=== PATIENT | female | born 1985 | race African-American/Black ===

== ENCOUNTER 2017-05-03 06:57 | Emergency (ER) | payer SELFPAY ==
[2017-05-03 07:05] VITALS: BP 126/72
--- NOTE | 2017-05-03 07:29 | ER Document Report ---
ED ENT - General Information source: Patient TRAVEL OUTSIDE OF THE [place] IN LAST 30 DAYS: No - HPI Patient complains to provider of: Throat problem Onset: Other - 2 weeks Location of pain: Throat Associated symptoms: Other - see above - General Chief Complaint: Sore Throat Stated Complaint: SORE THROAT Time Seen by Provider: 05/03/17 07:25 Notes: Patient is a 34 year old female who presents to the ED with complaints of discomfort and difficulty swallowing x2 weeks. Patient states she began having pain 2 days ago. Patient states she coughed yesterday and her sputum had small traces of blood. Patient denies a history of reflux or heart burn. Patient denies any sob. (ANANTH WALKER) - Related Data Allergies/Adverse Reactions: No Known Allergies Allergy (Verified 05/03/17 07:41) Past Medical History - General Information source: Patient - Social History Smoking Status: Unknown if Ever Smoked Family History: Reviewed & Not Pertinent Patient has suicidal ideation: No Patient has homicidal ideation: No Pulmonary Medical History: Reports: Hx Asthma Renal/ Medical History: Denies: Hx Peritoneal Dialysis Past Surgical History: Reports: Hx Section - x1 - Immunizations Hx Diphtheria, Pertussis, Tetanus Vaccination: Yes - 2011 Hx Pneumococcal Vaccination: 07/13/12 Review of Systems - Review of Systems Constitutional: No symptoms reported EENT: See HPI, Throat pain, Difficulty swallowing Cardiovascular: No symptoms reported Respiratory: See HPI, Cough, Sputum Gastrointestinal: No symptoms reported Genitourinary: No symptoms reported Female Genitourinary: No symptoms reported Musculoskeletal: No symptoms reported Skin: No symptoms reported Hematologic/Lymphatic: No symptoms reported Neurological/Psychological: No symptoms reported Physical Exam - General General appearance: Appears well, Alert, Other - voice is muffled and congested sounding In distress: None - HEENT Head: Normocephalic, Atraumatic Eyes: Normal Extraocular movements intact: Yes Pupils: PERRL Pharynx: Normal - Respiratory Respiratory status: No respiratory distress Breath sounds: Normal - Cardiovascular Rhythm: Regular Heart sounds: Normal auscultation Murmur: No - Abdominal Inspection: Normal Distension: No distension - Back Back: Normal - Extremities General upper extremity: Normal inspection, Normal ROM General lower extremity: Normal inspection, Normal ROM - Neurological Neuro grossly intact: Yes - Psychological Associated symptoms: Normal affect, Normal mood - Skin Skin Temperature: Warm Skin Moisture: Dry Skin Color: Normal Course - Re-evaluation Re-evalutation: 05/03/17 07:46 Patient presents emergency department with chief complaint of difficulty swallowing for several weeks duration followed by a sore throat that started 2 days ago. Patient states that she said trouble swallowing for several weeks now. She says that it started to hurt when she swallows about 2 days ago. She has not seen anyone for this denies a history of reflux GERD or heartburn. She is otherwise physically healthy she denies of having any respiratory distress she says when she tries to swallow liquids he feels like it is getting stuck. She has had no difficulty breathing choking cyanosis or respiratory difficulty. On examination well-appearing nontoxic her voice sounds a little bit hoarse but there is no trismus stridor or drooling posterior pharynx is without erythema edema or exudate tonsils are not enlarged there is no peritonsillar abscess uvula is midline teeth are intact trachea is midline no stridor lungs are clear. I have several concerns about the fact that she has had difficulty swallowing for several weeks duration followed by some pain right now. I believe she needs follow-up with an ear nose and throat doctor and have a scope put down her throat to make sure there is no type of masses or tumors or narrowing of the esophagus. In addition to that I did start her on some reflux medication. I do not think she has strep throat treated with Bicillin LA and gave her [facility] for ENT follow-up this week and discussed reasons for ED return sooner (ALICE NOGUEIRA) - Vital Signs Vital signs: Temp Pulse Resp BP Pulse Ox 98.2 F 77 18 126/72 H 97 05/03/17 07:02 05/03/17 07:02 05/03/17 07:02 05/03/17 07:02 05/03/17 07:02 Discharge - Discharge Clinical Impression: dysphagia with hoarseness Condition: Stable Disposition: HOME, SELF-CARE Additional Instructions: Dysphagia You are suffering from dysphagia -- a difficulty in swallowing food or liquid. This is due to a narrowing in the esophagus. Most commonly, it's due to chronic effects of esophagitis (an inflammation of the lower esophagus due to stomach acid, causing symptoms such as chest pain or heartburn). A hiatal hernia is often present. Meat and poorly chewed food may stick in the lower esophagus, blocking it. If this is a recurrent problem, a procedure to dilate the esophagus may be necessary. If the dysphagia has just begun, further testing to evaluate the cause of the obstruction will be necessary. Most commonly, the problem will resolve once swelling in the esophagus stops. Usual treatment is antacids or acid-suppressing medication. Membrane- coating medicine (such as Carafate), or medicine to keep acid out of the esophagus (such as Reglan) may be helpful for some patients. Call the doctor or return for re-evaluation if you develop chest pain, fever, shortness of breath, or inability to swallow fluids. Call [facility] ENT today for follow-up appointment in 3-4 days at telephone #[phone]. They are located on [address] [place] [address]. here in [place]. Prescriptions: Ranitidine HCl [Zantac] 150 mg PO BID #14 tablet Forms: Return to Work Scribe Attestation: 05/03/17 07:51 I personally performed the services described in the documentation reviewed the documentation recorded by my scribe in my presence and it accurately and completely records my words and actions (ALICE NOGUEIRA) Scribe Documentation - Scribe Written by Sandie:: sandie Restrepo, 05/03/2017, [id number] acting as scribe for :: [place]jas
[2017-05-03] MEDS ORDERED: PENICILLIN G BENZATHINE 1.2 MILLION UNIT/2 ML DISP.SYRIN IM ONE (07:39)
== END 2017-05-03 08:00 | disposition home or self-care (01) ==
LOC: ER 06:57
DX: R13.10 Dysphagia, unspecified (principal); R49.0 Dysphonia; J02.9 Acute pharyngitis, unspecified
CPT/HCPCS: 99282; 96372; J0561

== ENCOUNTER → 2017-05-23 | Outpatient (CLI) | payer SELFPAY ==
--- NOTE | 2017-05-23 15:17 | RADIOLOGY REPORT (SQ) ---
EXAM DESCRIPTION: BARIUM SWALLOW ESOPHAGUS COMPLETED DATE/TIME: 05/23/2017 9:40 am REASON FOR STUDY: DYSPHAGIA, UNSPECIFIED R13.10 DYSPHAGIA, UNSPECIFIED COMPARISON: None. TECHNIQUE: Under fluoroscopic guidance, patient ingested effervescent granules followed by thick and thin barium. Fluoroscopic spot images and routine radiographic images acquired and stored on PACS. 12 MM BARIUM TABLET GIVEN: Yes. LIMITATIONS: None. FLUOROSCOPY TIME: FLUORO TIME: 1 minutes 33 seconds Multiple fluoroscopic images saved to PACS. FINDINGS: NEUROMUSCULAR COORDINATION OF SWALLOW: Normal. No aspiration. ESOPHAGEAL MOTILITY: Normal peristalsis. No esophageal spasm. ESOPHAGEAL MUCOSA: Normal mucosa without masses or ulceration. GASTRO-ESOPHAGEAL JUNCTION: Reflux to the level of the thoracic inlet. NON-GI TRACT STRUCTURES: No significant finding. OTHER: No other significant finding. IMPRESSION: Gastroesophageal reflux. No stricture identified. COMMENT: Quality ID [id number]: Final reports for procedures using fluoroscopy that document radiation exp osure indices, or exposure time and number of fluorographic images (if radiation exposure indices are not available) TECHNICAL DOCUMENTATION: JOB ID: [id number] [employer]- All Rights Reserved
== END ==
LOC: RAD 09:05
PROVIDERS: ATTEND Otolaryngology
DX: R13.10 Dysphagia, unspecified (principal)
CPT/HCPCS: 74220

== ENCOUNTER → 2018-03-16 | Outpatient (CLI) | payer OTHER ==
--- NOTE | 2018-03-16 10:27 | WOMENS IMAGING REPORT ---
EXAM DESCRIPTION: BILAT DIAGNOSTIC MAMMO W/CAD; U/S BREAST UNILAT LIMITED COMPLETED DATE/TIME: 03/16/2018 9:46 am; 03/16/2018 10:15 am REASON FOR STUDY: GALACTORRHEA OF BOTH BREASTS; N64.3; BILATERAL BREAST DISCHARGE N64.3 GALACTORRHE A NOT ASSOCIATED WITH CHILDBIRTH COMPARISON: None. TECHNIQUE: Standard craniocaudal and mediolateral oblique views of each breast recorded using digita l acquisition. Additional true lateral images of both breasts. LIMITATIONS: None. FINDINGS: RIGHT BREAST MASSES: No suspicious masses. CALCIFICATIONS: No new or suspicious calcifications. ARCHITECTURAL DISTORTION: None. DEVELOPING DENSITY: None. ASYMMETRY: None noted. OTHER: No other significant findings. LEFT BREAST MASSES: No suspicious masses. CALCIFICATIONS: No new or suspicious calcifications. ARCHITECTURAL DISTORTION: None. DEVELOPING DENSITY: None. ASYMMETRY: None noted. OTHER: Metallic foreign body from prior injury. No other significant finding. Read with the assistance of CAD: .[facility] - R2 Cenova Version 1.3 .[facility] Imaging - R2 Cenova Version 1.3 .[facility] Imaging - R2 Cenova Version 2.4 .[facility] [place] R2 Cenova Version 2.4 .[facility] - R2 Principal Technical Writer Version 9.2 BREAST ULTRASOUND: TECHNIQUE: Static and dynamic grayscale images acquired of the right and left breast in the specific areas of clinical/mammographic concern. Selected color Doppler images recorded. ELASTOGRAPHY PERFORMED: No. LIMITATIONS: None. FINDINGS: MASS: No mass identified. Normal glandular tissue. ELASTOGRAPHY CHARACTERISTICS: Not applicable. OTHER: No other significant finding. IMPRESSION: Unremarkable bilateral mammogram and bilateral breast ultrasound. No worrisome findings . BREAST DENSITY: c. The breasts are heterogeneously dense, which may obscure small masses. BIRAD: 1 Negative. RECOMMENDATION: RECOMMENDED FOLLOW UP: Birads 1 or 2: No breast imaging finding to explain the patie nt's presenting complaint. Further intervention should be based on the degree of clinical suspicion. SPECIFIC INTERVENTION/IMAGING/CONSULTATION RECOMMENDED:No additional intervention/ imaging/consultati on needed at this time. COMMUNICATION:The imaging findings were not discussed with the patient. Her referring provider has be en notified of the findings. COMMENT: The patient has been notified of the results by letter per MQSA requirements. Additional no tification policies are in place for contacting patient with suspicious or incomplete findings. Quality ID #225: The [employer] recommends an annual screening mammogram for women aged 40 years or over. This facility utilizes a reminder system to ensure that all patients receive reminder letters, and/or direct phone calls for appointments. This includes reminders for routine scr eening mammograms, diagnostic mammograms, or other Breast Imaging Interventions when appropriate. Th is patient will be placed in the appropriate reminder system. The [employer] (ACR) has developed recommendations for screening MRI of the breast s in certain patient populations, to be used in conjunction with mammography. Breast MRI surveillanc e may be appropriate for women with more than 20% lifetime risk of developing breast cancer as deter mined by genetic testing, significant family history of the disease, or history of mantle radiation f or Hodgkins Disease. ACR Practice Guidelines 2008. TECHNICAL DOCUMENTATION: FINDING NUMBER: (1) ASSESSMENT: (1) JOB ID: [id number] [employer]- All Rights Reserved Reading location - IP/workstation name: [facility]
--- NOTE | 2018-03-16 10:27 | WOMENS IMAGING REPORT ---
EXAM DESCRIPTION: BILAT DIAGNOSTIC MAMMO W/CAD; U/S BREAST UNILAT LIMITED COMPLETED DATE/TIME: 03/16/2018 9:46 am; 03/16/2018 10:15 am REASON FOR STUDY: GALACTORRHEA OF BOTH BREASTS; N64.3; BILATERAL BREAST DISCHARGE N64.3 GALACTORRHE A NOT ASSOCIATED WITH CHILDBIRTH COMPARISON: None. TECHNIQUE: Standard craniocaudal and mediolateral oblique views of each breast recorded using digita l acquisition. Additional true lateral images of both breasts. LIMITATIONS: None. FINDINGS: RIGHT BREAST MASSES: No suspicious masses. CALCIFICATIONS: No new or suspicious calcifications. ARCHITECTURAL DISTORTION: None. DEVELOPING DENSITY: None. ASYMMETRY: None noted. OTHER: No other significant findings. LEFT BREAST MASSES: No suspicious masses. CALCIFICATIONS: No new or suspicious calcifications. ARCHITECTURAL DISTORTION: None. DEVELOPING DENSITY: None. ASYMMETRY: None noted. OTHER: Metallic foreign body from prior injury. No other significant finding. Read with the assistance of CAD: .[facility] - R2 Cenova Version 1.3 .[facility] Imaging - R2 Cenova Version 1.3 .[facility] Imaging - R2 Cenova Version 2.4 .[facility] - R2 Cenova Version 2.4 .[facility] - R2 Automatic Shirring Machine Operator Version 9.2 BREAST ULTRASOUND: TECHNIQUE: Static and dynamic grayscale images acquired of the right and left breast in the specific areas of clinical/mammographic concern. Selected color Doppler images recorded. ELASTOGRAPHY PERFORMED: No. LIMITATIONS: None. FINDINGS: MASS: No mass identified. Normal glandular tissue. ELASTOGRAPHY CHARACTERISTICS: Not applicable. OTHER: No other significant finding. IMPRESSION: Unremarkable bilateral mammogram and bilateral breast ultrasound. No worrisome findings . BREAST DENSITY: c. The breasts are heterogeneously dense, which may obscure small masses. BIRAD: 1 Negative. RECOMMENDATION: RECOMMENDED FOLLOW UP: Birads 1 or 2: No breast imaging finding to explain the patie nt's presenting complaint. Further intervention should be based on the degree of clinical suspicion. SPECIFIC INTERVENTION/IMAGING/CONSULTATION RECOMMENDED:No additional intervention/ imaging/consultati on needed at this time. COMMUNICATION:The imaging findings were not discussed with the patient. Her referring provider has be en notified of the findings. COMMENT: The patient has been notified of the results by letter per MQSA requirements. Additional no tification policies are in place for contacting patient with suspicious or incomplete findings. Quality ID #225: The [employer] recommends an annual screening mammogram for women aged 40 years or over. This facility utilizes a reminder system to ensure that all patients receive reminder letters, and/or direct phone calls for appointments. This includes reminders for routine scr eening mammograms, diagnostic mammograms, or other Breast Imaging Interventions when appropriate. Th is patient will be placed in the appropriate reminder system. The [employer] (ACR) has developed recommendations for screening MRI of the breast s in certain patient populations, to be used in conjunction with mammography. Breast MRI surveillanc e may be appropriate for women with more than 20% lifetime risk of developing breast cancer as deter mined by genetic testing, significant family history of the disease, or history of mantle radiation f or Hodgkins Disease. ACR Practice Guidelines 2008. TECHNICAL DOCUMENTATION: FINDING NUMBER: (1) ASSESSMENT: (1) JOB ID: [id number] [employer]- All Rights Reserved Reading location - IP/workstation name: [facility]
--- NOTE | 2018-03-16 10:27 | WOMENS IMAGING REPORT ---
EXAM DESCRIPTION: BILAT DIAGNOSTIC MAMMO W/CAD; U/S BREAST UNILAT LIMITED COMPLETED DATE/TIME: 03/16/2018 9:46 am; 03/16/2018 10:15 am REASON FOR STUDY: GALACTORRHEA OF BOTH BREASTS; N64.3; BILATERAL BREAST DISCHARGE N64.3 GALACTORRHE A NOT ASSOCIATED WITH CHILDBIRTH COMPARISON: None. TECHNIQUE: Standard craniocaudal and mediolateral oblique views of each breast recorded using digita l acquisition. Additional true lateral images of both breasts. LIMITATIONS: None. FINDINGS: RIGHT BREAST MASSES: No suspicious masses. CALCIFICATIONS: No new or suspicious calcifications. ARCHITECTURAL DISTORTION: None. DEVELOPING DENSITY: None. ASYMMETRY: None noted. OTHER: No other significant findings. LEFT BREAST MASSES: No suspicious masses. CALCIFICATIONS: No new or suspicious calcifications. ARCHITECTURAL DISTORTION: None. DEVELOPING DENSITY: None. ASYMMETRY: None noted. OTHER: Metallic foreign body from prior injury. No other significant finding. Read with the assistance of CAD: .[facility] - R2 Cenova Version 1.3 .[facility] Imaging - R2 Cenova Version 1.3 .[facility] Imaging - R2 Cenova Version 2.4 .[facility] - R2 Cenova Version 2.4 .[facility] - R2 Allocations Clerk Version 9.2 BREAST ULTRASOUND: TECHNIQUE: Static and dynamic grayscale images acquired of the right and left breast in the specific areas of clinical/mammographic concern. Selected color Doppler images recorded. ELASTOGRAPHY PERFORMED: No. LIMITATIONS: None. FINDINGS: MASS: No mass identified. Normal glandular tissue. ELASTOGRAPHY CHARACTERISTICS: Not applicable. OTHER: No other significant finding. IMPRESSION: Unremarkable bilateral mammogram and bilateral breast ultrasound. No worrisome findings . BREAST DENSITY: c. The breasts are heterogeneously dense, which may obscure small masses. BIRAD: 1 Negative. RECOMMENDATION: RECOMMENDED FOLLOW UP: Birads 1 or 2: No breast imaging finding to explain the patie nt's presenting complaint. Further intervention should be based on the degree of clinical suspicion. SPECIFIC INTERVENTION/IMAGING/CONSULTATION RECOMMENDED:No additional intervention/ imaging/consultati on needed at this time. COMMUNICATION:The imaging findings were not discussed with the patient. Her referring provider has be en notified of the findings. COMMENT: The patient has been notified of the results by letter per MQSA requirements. Additional no tification policies are in place for contacting patient with suspicious or incomplete findings. Quality ID #225: The [employer] recommends an annual screening mammogram for women aged 40 years or over. This facility utilizes a reminder system to ensure that all patients receive reminder letters, and/or direct phone calls for appointments. This includes reminders for routine scr eening mammograms, diagnostic mammograms, or other Breast Imaging Interventions when appropriate. Th is patient will be placed in the appropriate reminder system. The [employer] (ACR) has developed recommendations for screening MRI of the breast s in certain patient populations, to be used in conjunction with mammography. Breast MRI surveillanc e may be appropriate for women with more than 20% lifetime risk of developing breast cancer as deter mined by genetic testing, significant family history of the disease, or history of mantle radiation f or Hodgkins Disease. ACR Practice Guidelines 2008. TECHNICAL DOCUMENTATION: FINDING NUMBER: (1) ASSESSMENT: (1) JOB ID: [id number] [employer]- All Rights Reserved Reading location - IP/workstation name: [facility]
== END ==
LOC: WI 09:30
PROVIDERS: ATTEND Family Medicine
DX: N64.3 Galactorrhea not associated with childbirth (principal)
CPT/HCPCS: 76642; 77066

== ENCOUNTER 2018-05-03 08:30 | Day surgery (SDC) | payer OTHER ==
[~2018-05-03 08:30] MED LIST: DIPHENHYDRAMINE HCL 50 MG/ML VIAL ONE; EPINEPHRINE INJ 1 MG/10 ML DISP.SYRIN ONE; FENTANYL CITRATE INJ/PF 100 MCG/2 ML AMPUL ONE; FLUMAZENIL INJ 0.5 MG/5 ML VIAL ONE; GLUCAGON,HUMAN RECOMB 1 MG INJ ONE; MIDAZOLAM 2 MG/2 ML INJ ONE; NALOXONE HCL INJ/PF 0.4 MG/1 ML SDV ONE; ONDANSETRON HCL INJ/PF 4 MG/2 ML SDV ONE
[2018-05-03] MEDS: MIDAZOLAM 2 MG/2 ML INJ ONE ×2 (09:07→09:12)
--- NOTE | 2018-05-03 09:19 | Operative Report ---
Operative Report DATE OF SURGERY: 05/03/18 Operative Report: The risks benefits and alternatives of the procedure explained to the patient in detail and informed consent is obtained.A GIF Olympus video scope was inserted into the patient's mouth and hypopharynx, the esophagus is identified intubated and insufflated, the scope was then advanced through the esophagus stomach and duodenum, retroflexion maneuver is done, the esophagus stomach and first and second portions of the duodenum examined PREOPERATIVE DIAGNOSIS: Gastroesophageal reflux disease. Previous history of H pylori infection that was incompletely treated POSTOPERATIVE DIAGNOSIS: Nodular gastritis status post biopsy rule out Helicobacter pylori OPERATION: EGD with biopsy SURGEON: DESIREE RASMUSSEN ANESTHESIA: Moderate Sedation - 4 mg of Versed, 75 mcg of fentanyl. Conscious sedation monitoring time 30 minutes. TISSUE REMOVED OR ALTERED: As noted above. COMPLICATIONS: None. ESTIMATED BLOOD LOSS: None. INTRAOPERATIVE FINDINGS: As noted above. PROCEDURE: Patient tolerated the procedure well. No immediate postprocedure complications are noted. Patient discharged in good condition. Discharge date 05/03/2018. Discharge diet: Regular. Discharge activity: Regular. 2-3 week follow-up to discuss findings. We will re-treat for Helicobacter pylori if positive. We will wait on pathology.
[2018-05-03 10:28] VITALS: BP 120/75
== END 2018-05-03 10:45 | disposition home or self-care (01) ==
LOC: END 08:30
PROVIDERS: ATTEND Internal Medicine Gastroenterology
DX: K29.50 Unspecified chronic gastritis without bleeding (principal); B96.81 Helicobacter pylori [H. pylori] as the cause of diseases classified elsewhere; K21.9 Gastro-esophageal reflux disease without esophagitis; J45.909 Unspecified asthma, uncomplicated; Z79.899 Other long term (current) drug therapy
CPT/HCPCS: 43239; 88342 ×2; 88305 ×2; J2250; J3010; J0171; J1200; J1610; J2310; J2405; J3490

== ENCOUNTER 2019-07-04 11:17 | Emergency (ER) | payer OTHER ==
--- NOTE | 2019-07-04 11:28 | ER Document Report ---
ED Medical Screen (RME) - General Chief Complaint: Abdominal Pain Stated Complaint: ABDOMINAL PAIN Time Seen by Provider: 07/04/19 11:21 Primary Care Provider: GERTRUDIS GUNN FNP-BC [Primary Care Provider] - Follow up as needed Mode of Arrival: Ambulatory Information source: Patient Notes: This 33-year-old female presents emergency department with right-sided abdominal pain and left lower quad abdominal pain that started this morning. Denies fever vomiting diarrhea. Unsure if she is . Right side tender to palpate I have greeted and performed a rapid initial assessment of this patient. A comprehensive ED assessment and evaluation of the patient, analysis of test results and completion of the medical decision making process will be conducted by additional ED providers. Dictation of this chart was performed using voice recognition software; therefore, there may be some unintended grammatical errors. TRAVEL OUTSIDE OF THE [place] IN LAST 30 DAYS: No - Related Data Allergies/Adverse Reactions: No Known Allergies Allergy (Verified 07/04/19 11:23) Past Medical History - Past Medical History Cardiac Medical History: Denies: Hx Coronary Artery Disease, Hx Heart Attack, Hx Hypertension Pulmonary Medical History: Reports: Hx Asthma - DORMENT Denies: Hx Bronchitis, Hx COPD, Hx Pneumonia Neurological Medical History: Denies: Hx Cerebrovascular Accident, Hx Seizures Renal/ Medical History: Denies: Hx Peritoneal Dialysis Musculoskeltal Medical History: Denies Hx Arthritis Past Surgical History: Reports: Hx Section - x1. Denies: Hx Hysterectomy - Immunizations Hx Diphtheria, Pertussis, Tetanus Vaccination: Yes - 2011 Influenza Administration Date for 07/2017 - 12/2017 Season: 08/10/17 Physical Exam - Vital signs Vitals: Temp Pulse Resp BP Pulse Ox 97.9 F 73 18 137/67 H 98 07/04/19 11:25 07/04/19 11:25 07/04/19 11:25 07/04/19 11:25 07/04/19 11:25 Course - Vital Signs Vital signs: Temp Pulse Resp BP Pulse Ox 97.9 F 73 18 137/67 H 98 07/04/19 11:25 07/04/19 11:25 07/04/19 11:25 07/04/19 11:25 07/04/19 11:25 Doctor's Discharge - Discharge Referrals: KARLE,GERTRUDIS L, GEOLOGICAL AIDE-BC [Primary Care Provider] - Follow up as needed
[2019-07-04] MEDS ORDERED: ONDANSETRON 4 MG TAB.RAPDIS PO ONE (12:02)
[2019-07-04] MEDS ORDERED: KETOROLAC TROMETHAMINE 60 MG/2 ML SDV IM ONE (12:02)
--- NOTE | 2019-07-04 12:05 | ER Document Report ---
ED General - General Chief Complaint: Abdominal Pain Stated Complaint: ABDOMINAL PAIN Time Seen by Provider: 07/04/19 11:21 Primary Care Provider: GERTRUDIS GUNN FNP-BC [Primary Care Provider] - Follow up as needed Mode of Arrival: Ambulatory TRAVEL OUTSIDE OF THE [place] IN LAST 30 DAYS: No - HPI Notes: Patient is a 33-year-old female with no significant past medical history aside from asthma who presents complaining of right flank pain that radiated around into her right lower abdomen that occurred when she was driving to work today. Patient states the pain is intermittent and is currently not present. Patient states that she does have pressure to her lower pelvic area as well. She has not noticed any vaginal discharge, odor, or bleeding. Patient states that she is able to eat and drink without difficulty, but does have some occasional nausea. She is urinating normally and having normal bowel movements with the last one being this morning. Denies drug allergies. She does have history of without other abdominal surgeries. Denies any headache, fever, neck pain, URI, sore throat, chest pain, palpitations, syncope, cough, shortness of breath, wheeze, dyspnea, vomiting/diarrhea, urinary retention, dysuria, hematuria, loss of control of bowel or bladder, numbness/tingling, saddle anesthesia, muscle paralysis/weakness, or rash. - Related Data Allergies/Adverse Reactions: No Known Allergies Allergy (Verified 07/04/19 11:23) Past Medical History - General Information source: Patient - Social History Smoking Status: Never Smoker Family History: Reviewed & Not Pertinent Patient has suicidal ideation: No Patient has homicidal ideation: No - Past Medical History Cardiac Medical History: Denies: Hx Coronary Artery Disease, Hx Heart Attack, Hx Hypertension Pulmonary Medical History: Reports: Hx Asthma - DORMENT Denies: Hx Bronchitis, Hx COPD, Hx Pneumonia Neurological Medical History: Denies: Hx Cerebrovascular Accident, Hx Seizures Renal/ Medical History: Denies: Hx Peritoneal Dialysis Musculoskeletal Medical History: Denies Hx Arthritis Past Surgical History: Reports: Hx Section - x1. Denies: Hx Hysterec pablito - Immunizations Hx Diphtheria, Pertussis, Tetanus Vaccination: Yes - 2011 Hx Pneumococcal Vaccination: 07/13/12 Review of Systems - Review of Systems -: Yes All other systems reviewed and negative Physical Exam - Vital signs Vitals: Temp Pulse Resp BP Pulse Ox 97.9 F 73 18 137/67 H 98 07/04/19 11:25 07/04/19 11:25 07/04/19 11:25 07/04/19 11:25 07/04/19 11:25 - Notes Notes: PHYSICAL EXAMINATION: GENERAL: Well-appearing, well-nourished and in no acute distress. HEAD: Atraumatic, normocephalic. EYES: Pupils equal round and reactive to light, extraocular movements intact, sclera anicteric, conjunctiva are normal. ENT: Nares patent and without discharge. oropharynx clear without exudates. No tonsilar hypertrophy or erythema. Moist mucous membranes. NECK: Normal range of motion, supple without lymphadenopathy LUNGS: Breath sounds clear to auscultation bilaterally and equal. No wheezes rales or rhonchi. HEART: Regular rate and rhythm without murmurs, rubs, gallops. ABDOMEN: Soft, nondistended abdomen. No guarding, no rebound. Normal bowel sounds present. No CVA tenderness bilaterally. When palpating the lower pelvic area, pt described discomfort as 'pressure' no sharp tenderness. Rosario negative. No tenderness at Mcburney point. Musculoskeletal: FROM to passive/active. Strength 5+/5. Extremities: No cyanosis, clubbing, or edema b/l. Peripheral pulses 2+. Capillary refill less than 3 seconds. NEUROLOGICAL: Normal speech, normal gait. PSYCH: Normal mood, normal affect. SKIN: Warm, Dry, normal turgor, no rashes or lesions noted. Course - Re-evaluation Re-evalutation: 07/04/19 15:01 Patient is an afebrile, well-hydrated, 33-year-old female who presents to the ED with resolved rt flank pain, suspect possible passed stone as she had the pain and noted hematuria in the presence of nephrolithiasis on CT. Pt also has BV. Vitals are acceptable without any significant tachycardia, tachypnea, or hypoxia. PE is otherwise unremarkable. CBC, CMP, lipase chlam/lemuel, Urinalysis and hCG are unremarkable for any acute pathology. See wet mount results. Patient is nontoxic-appearing is tolerating p.o. without any difficulties. CT showed b/l nephrolithisis and Transvaginal ultrasound was unremarkable for any acute pathology. No other labs or imaging warranted at this time based on H&P. Low suspicion/risk for acute appendicitis, bowel obstruction, acute cholecystitis, acute cholangitis, perforated diverticulitis, incarcerated hernia, pancreatitis, perforated ulcer, peritonitis, sepsis, pelvic inflammatory disease, ectopic , tubo-ovarian abscess, ovarian torsion, or other systemic emergent condition at this time. Patient is aware that her condition can change from initial presentation and she needs to monitor symptoms closely and seek medical attention if any acute changes. I will send her home with prescription for Flagyl and naproxen. Conservative measures otherwise for symptoms. Recheck with your PCM/OBGYN in 3-5 days. Return to the ED with any worsening/concerning symptoms otherwise as reviewed in discharge. Patient is in agreement. - Vital Signs Vital signs: Temp Pulse Resp BP Pulse Ox 97.5 F 65 17 129/68 H 100 07/04/19 14:04 07/04/19 14:04 07/04/19 14:04 07/04/19 14:04 07/04/19 14:04 - Laboratory Result Diagrams: 07/04/19 12:10 07/04/19 12:10 Laboratory results interpreted by me: 07/04/19 12:10 Urine Blood LARGE H Discharge - Discharge Clinical Impression: Right flank pain, BV (bacterial vaginosis) Condition: Stable Disposition: HOME, SELF-CARE Instructions: Metronidazole ([facility]) Additional Instructions: Maintain fluid intake Proper hygienic technique Keep the skin clean Tylenol/ibuprofen as needed F/u with your PCM/OBGYN in 3-5 days for a recheck Return to the ED with any development of SCHWARTZ/fever, trouble with vision, eye redness, worsening pain, urethral discharge, urinary retention, blood in the urine, flank pain, abdominal pain, n/v, Chest Pain, shortness of breath, joint pains, trouble breathing, or any other worsening/concerning symptoms as needed otherwise. Prescriptions: Metronidazole [Flagyl] 500 mg PO BID #14 tablet Naproxen 500 mg PO BID #20 tablet Forms: Elevated Blood Pressure Referrals: GERTRUDIS GUNN FNP-BC [Primary Care Provider] - Follow up as needed [facility] [Provider Group] - Follow up as needed
[2019-07-04] MEDS ORDERED: ONDANSETRON HCL INJ/PF 4 MG/2 ML SDV IV ONE (12:27)
[2019-07-04] MEDS ORDERED: LIDOCAINE 1% INJ-PF (10 MG/ML) 30 ML SDV INJ ONE (12:27)
[2019-07-04] MEDS ORDERED: CEFTRIAXONE INJ 250 MG VIAL IM ONE (12:27)
[2019-07-04] MEDS ORDERED: AZITHROMYCIN 250 MG TABLET PO ONE (12:27)
[2019-07-04] MEDS ORDERED: KETOROLAC TROMETHAMINE INJ/PF 30 MG/1 ML SDV IV ONE (12:27)
[2019-07-04] MEDS ORDERED: METOCLOPRAMIDE HCL INJ/PF 10 MG/2 ML SDV IV ONE (12:28)
[2019-07-04 12:32] LABS: ABSOLUTE EOSINOPHILS # (AUTO) 0.1 10^3/uL (0.0-0.6); ABSOLUTE LYMPHOCYTES (AUTO) 1.4 10^3/uL (0.5-4.7); ABSOLUTE MONOCYTES (AUTO) 0.5 10^3/uL (0.1-1.4); BASOPHILS % (AUTO) 0.7 % (0-2); EOSINOPHILS % (AUTO) 2.4 % (0-6); HEMATOCRIT 38.3 % (36.0-47.0); HEMOGLOBIN 12.9 g/dL (12.0-15.5); LYMPHOCYTES % (AUTO) 34.8 % (13-45); MEAN CORPUSCULAR HEMOGLOBIN 28.2 pg (27.0-33.4); MEAN CORPUSCULAR HGB CONC 33.7 g/dL (32.0-36.0); MEAN CORPUSCULAR VOLUME 84 fl (80-97); MONOCYTES % (AUTO) 12.1 % (3-13); PLATELET COUNT 205 10^3/uL (150-450); RED BLOOD COUNT 4.56 10^6/uL (3.72-5.28); RED CELL DISTRIBUTION WIDTH 13.4 % (11.5-14.0); TOTAL CELLS COUNTED % (AUTO) 100 %
[2019-07-04 12:34] LABS: BACTERIA (WET MOUNT) 4+ BACTERIA SEEN; EPITHELIALS (WET MOUNT) 4+ EPITHELIALS SEEN; RBCS (WET MOUNT) FEW RBCS SEEN; T.VAGINALIS (WET MOUNT) NO TRICHOMONAS SEEN; WBCS (WET MOUNT) 2+ WBCS SEEN; YEAST (WET MOUNT) NO YEAST SEEN
[2019-07-04 12:46] LABS: APPEARANCE,URINE CLEAR; BILIRUBIN,URINE NEGATIVE (NEGATIVE); COLOR,URINE YELLOW; GLUCOSE, URINE NEGATIVE (NEGATIVE); KETONES,URINE NEGATIVE (NEGATIVE); LEUKOCYTE ESTERASE,URINE NEGATIVE (NEGATIVE); NITRITE,URINE NEGATIVE (NEGATIVE); PROTEIN,URINE NEGATIVE (NEGATIVE); URINE SPECIFIC GRAVITY 1.021; UROBILINOGEN,URINE NEGATIVE mg/dL (<2.0)
[2019-07-04 12:53] LABS: ALBUMIN 4.2 g/dL (3.5-5.0); ALKALINE PHOSPHATASE 57 U/L (38-126); ANION GAP 7 (5-19); ASPARTATE AMINO TRANSFERASE 18 U/L (14-36); BILIRUBIN,DIRECT 0.1 mg/dL (0.0-0.4); BILIRUBIN,TOTAL 0.7 mg/dL (0.2-1.3); BLOOD UREA NITROGEN 11 mg/dL (7-20); CARBON DIOXIDE 28 mmol/L (22-30); CHLORIDE 104 mmol/L (98-107); GLUCOSE 83 mg/dL (75-110); POTASSIUM 3.9 mmol/L (3.6-5.0); TOTAL PROTEIN 7.2 g/dL (6.3-8.2)
--- NOTE | 2019-07-04 13:21 | RADIOLOGY REPORT (SQ) ---
EXAM DESCRIPTION: CT ABD/PELVIS NO ORAL OR IV COMPLETED DATE/TIME: 07/04/2019 1:04 pm REASON FOR STUDY: Rt flank pain COMPARISON: None. TECHNIQUE: CT scan of the abdomen and pelvis performed without intravenous or oral contrast. Images reviewed with lung, soft tissue, and bone windows. Reconstructed coronal and sagittal MPR images revi ewed. All images stored on PACS. All CT scanners at this facility use dose modulation, iterative reconstruction, and/or weight based d osing when appropriate to reduce radiation dose to as low as reasonably achievable (ALARA). [facility]: Dose Right [facility]: CareDose [facility]: Dose Right [facility]: Teradose 4D [facility]: Smart [employer] RADIATION DOSE: CT Rad equipment meets quality standard of care and radiation dose reduction techniq ues were employed. CTDIvol: 11.7 mGy. DLP: 629 mGy-cm.mGy. LIMITATIONS: None. FINDINGS: LOWER CHEST: No significant findings. No nodules or infiltrates. NON-CONTRASTED LIVER, SPLEEN, ADRENALS: Evaluation limited by lack of IV contrast. No identified sign ificant masses. PANCREAS: No masses. No peripancreatic inflammatory changes. GALLBLADDER: Decompressed. No radiopaque stones. RIGHT KIDNEY AND URETER: No suspicious masses. Assessment limited by lack of IV contrast. Nonobstru cting stones, largest within the lower pole measuring 5 mm. No hydronephrosis or hydroureter. LEFT KIDNEY AND URETER: No suspicious masses. Assessment limited by lack of IV contrast. Nonobstruc ting stones, largest within the interpolar region measuring 3 mm. No hydronephrosis or hydroureter. AORTA AND RETROPERITONEUM: No aneurysm. No retroperitoneal masses or adenopathy. BOWEL AND PERITONEAL CAVITY: No focal bowel wall thickening. No no evidence of intestinal obstructio n. Formed stool throughout the colon. No obvious masses or inflammatory changes. No free fluid. APPENDIX: Normal. PELVIS, BLADDER, AND ABDOMINAL WALL:Punctate pelvic radiodensities, likely phleboliths. Decompressed urinary bladder. No pelvic masses or adenopathy. No free pelvic fluid. BONES: No significant findings. OTHER: No other significant finding. IMPRESSION: Bilateral nephrolithiasis. No evidence of hydronephrosis or obstructive uropathy. Normal appendix. COMMENT: Quality ID # [id number]: Final reports with documentation of one or more dose reduction techniques (e.g., Automated exposure control, adjustment of the mA and/or kV according to patient size, use of iterative reconstruction technique) TECHNICAL DOCUMENTATION: JOB ID: [id number] [employer]- All Rights Reserved Reading location - IP/workstation name: [email or web address]
[2019-07-04 14:04] LABS: CHLAM PCR NOT DETECTED (NOT DETECT)
--- NOTE | 2019-07-04 14:41 | RADIOLOGY REPORT (SQ) ---
EXAM DESCRIPTION: U/S NON OB PEL TV W/DOPPLER COMPLETED DATE/TIME: 07/04/2019 2:33 pm REASON FOR STUDY: lower pelvic pain/pressure COMPARISON: None. TECHNIQUE: Dynamic and static grayscale images acquired of the pelvis via transvaginal approach and recorded on PACS. Additional selected color Doppler and spectral images recorded. LIMITATIONS: None. FINDINGS: UTERUS: Contour normal. No mass. ENDOMETRIAL STRIPE: No focal or generalized thickening. No masses. CERVIX: No nabothian cysts. RIGHT OVARY AND DOPPLER: Normal size. No worrisome masses. Normal arterial vascular flow without evid ence for torsion. LEFT OVARY AND DOPPLER: Normal size. No worrisome masses. Normal arterial vascular flow without evide nce for torsion. FREE FLUID: None noted. OTHER: No other significant finding. MEASUREMENTS: UTERUS: 4.6 x 5.5 x 9.4 cm. ENDOMETRIAL STRIPE: 7 mm. RIGHT OVARY: 2.4 x 2.4 x 3.0 cm. LEFT OVARY: 1.8 x 2.5 x 3.2 cm. IMPRESSION: NORMAL TRANSVAGINAL PELVIC ULTRASOUND. TECHNICAL DOCUMENTATION: JOB ID: [id number]- All Rights Reserved Rev-02/24 Reading location - IP/workstation name: [email or web address]
[2019-07-04 15:19] VITALS: BP 121/62
== END 2019-07-04 15:14 | disposition home or self-care (01) ==
LOC: ER 11:17
DX: N76.0 Acute vaginitis (principal); B96.89 Other specified bacterial agents as the cause of diseases classified elsewhere; R10.31 Right lower quadrant pain; R10.2 Pelvic and perineal pain; R11.0 Nausea; R10.9 Unspecified abdominal pain; J45.909 Unspecified asthma, uncomplicated
CPT/HCPCS: 99284; 96374; 96375; 36415; 87210; 83690; 85025; 81025; 80053; 81001; 87491; 87591; 76830; 93976; 74176; J3490; J1885; J2765; J0696

== ENCOUNTER → 2019-07-31 | Outpatient (CLI) | payer OTHER ==
[2019-07-31 20:32] LABS: CHLAM PCR NOT DETECTED (NOT DETECT)
== END ==
LOC: LAB 18:47
PROVIDERS: ATTEND Nurse Practitioner Acute Care
DX: Z00.00 Encounter for general adult medical examination without abnormal findings (principal)
CPT/HCPCS: 87491; 87591

== ENCOUNTER → 2019-07-31 | Outpatient (CLI) | payer OTHER ==
[2019-07-31 12:46] LABS: BACTERIA (WET MOUNT) 4+ BACTERIA SEEN; EPITHELIALS (WET MOUNT) 3+ EPITHELIALS SEEN; RBCS (WET MOUNT) 1+ RBCS SEEN; T.VAGINALIS (WET MOUNT) NO TRICHOMONAS SEEN; WBCS (WET MOUNT) 2+ WBCS SEEN; YEAST (WET MOUNT) NO YEAST SEEN
== END ==
LOC: LAB 12:39
PROVIDERS: ATTEND Nurse Practitioner Acute Care
DX: R30.0 Dysuria (principal)
CPT/HCPCS: 87086; 87210